=== PATIENT | male | born 1965 | race Caucasian/White ===

== ENCOUNTER 2023-01-31 08:11 | Observation (INO) | payer OTHER ==
[~2023-01-31] VITALS: Ht 172.7 cm; Wt 90.2 kg
--- OUTSIDE RECORDS SUMMARY | 2023-01-31 08:13 | XMS ---
PreManage Notification: ALEXYS FENG Security Pricing Analyst Events No recent Security Events currently on file [facility]IA MET - [facility] C[facility] PROVID[facility] There are no care providers on record at this time. Sean has no Care Guidelines for this patient. Gem VISIT COUNT (12 MO.) 1 [facility] TOTAL 1 NOTE: Visits indicate total known visits. ED/UCC VISIT TRACKING (12 MO.) 01/31/2023 08:11 [facility] [place] TYPE: Emergency COMPLAINT: - POSS STROKE INPATIENT VISIT TRACKING (12 MO.) No inpatient visits to display in this time frame [email or web address]
[2023-01-31 08:49] LABS: BASOPHILS 0.8 % (0-2); EOSINOPHILS 1.4 % (0-6); HEMATOCRIT 42.4 % (35.0-50.0); HEMOGLOBIN 13.2 g/dL (12.0-18.0); LYMPHOCYTES 9.9 % (24-44); MCH 22.4 (27-36); MCHC 31.2 g/dl (30-36); MCV 71.7 fl (81-99); MONOCYTES 7.4 % (0-12); NEUTROPHILS 80.5 % (39-80); PLATELET COUNT 250 K/uL (140-440); RBC 5.92 M/ul (4.3-5.7); RDW 18.8 (10.5-15.0)
[2023-01-31 08:58] LABS: INR 0.96 (0.80-1.30); PROTIME 12.3 Sec (11.2-14.2)
[2023-01-31 09:04] LABS: ALBUMIN 3.7 g/dL (3.4-5.0); ALBUMIN/GLOBULIN RATIO 1.19 (1.1-2.4); ANION GAP 14.4 (7-21); BILIRUBIN, TOTAL 0.3 ng/dL (0.2-1.0); BUN/CREATININE RATIO 18.46 (6.0-28.6); CALCIUM 9.3 mg/dL (8.5-10.1); CREATININE, SERUM 1.3 mg/dL (0.70-1.30); POTASSIUM 4.4 mmol/L (3.5-5.1); PROTEIN, TOTAL 6.8 g/dL (6.4-8.2)
[2023-01-31] MEDS ORDERED: LOSARTAN POTAS100 MG PO (09:06)
[2023-01-31] MEDS ORDERED: GABAPENTIN100 MG PO (09:06)
[2023-01-31] MEDS ORDERED: ROSUVASTATIN CA20 MG PO (09:06)
[2023-01-31] MEDS ORDERED: TRULICITY4.5 MG/0.5 SQ (09:06)
[2023-01-31] MEDS ORDERED: JARDIANCE25 MG PO (09:07)
[2023-01-31] MEDS ORDERED: OMEPRAZOLE20 MG PO (09:07)
[2023-01-31] MEDS ORDERED: AMLODIPINE BESY10 MG PO (09:07)
[2023-01-31] MEDS ORDERED: METFORMIN HCL1000 MG PO (09:09)
[2023-01-31] MEDS ORDERED: TOUJEO MAX300 UNIT/1 SQ (09:10)
[2023-01-31] MEDS ORDERED: LISINOPRIL10 MG PO ×2 (09:12→09:13)
[2023-01-31 11:09] LABS: AMPHETAMINES, URINE NEGATIVE (NEGATIVE); BARBITURATES, URINE NEGATIVE (NEGATIVE); BENZODIAZEPINE, URINE NEGATIVE (NEGATIVE); BUPRENORPHINE, URINE NEGATIVE (NEGATIVE); CANNABINOID, URINE NEGATIVE (NEGATIVE); COCAINE, URINE NEGATIVE (NEGATIVE); ECSTASY, URINE NEGATIVE (NEGATIVE); FENTANYL, URINE NEGATIVE (NEGATIVE); METHADONE, URINE NEGATIVE (NEGATIVE); OPIATES, URINE NEGATIVE (NEGATIVE); OXYCODONE, URINE NEGATIVE (NEGATIVE); PHENCYCLIDINE, URINE NEGATIVE (NEGATIVE)
[2023-01-31 13:20] VITALS: BP 142/69
[2023-01-31] MEDS ORDERED: ARMODAFINIL250 MG PO (14:17)
[2023-01-31 18:12] VITALS: BP 126/64
[2023-01-31 20:02] VITALS: BP 123/66
[2023-02-01 00:23] VITALS: BP 131/68
[2023-02-01 05:05] VITALS: BP 130/68
[2023-02-01 05:32] LABS: BASOPHILS 0.8 % (0-2); EOSINOPHILS 2.8 % (0-6); HEMATOCRIT 39.9 % (35.0-50.0); HEMOGLOBIN 12.7 g/dL (12.0-18.0); LYMPHOCYTES 22.8 % (24-44); MCH 22.5 (27-36); MCHC 31.9 g/dl (30-36); MCV 70.6 fl (81-99); MONOCYTES 12.2 % (0-12); NEUTROPHILS 61.4 % (39-80); PLATELET COUNT 239 K/uL (140-440); RBC 5.65 M/ul (4.3-5.7); RDW 19.1 (10.5-15.0)
[2023-02-01 05:41] LABS: ANION GAP 12.9 (7-21); BUN/CREATININE RATIO 17.46 (6.0-28.6); CREATININE, SERUM 1.26 mg/dL (0.70-1.30); POTASSIUM 3.9 mmol/L (3.5-5.1)
--- NOTE | 2023-02-01 07:13 | EKG ---
[facility] [address] [place], [place] [address] Signed Sinus bradycardia Otherwise normal ECG No previous ECGs available Confirmed by ANTHONY MONTGOMERY MD ([id number]) on 02/01/2023 7:13:04 AM Electronically Signed By: ANTHONY MONTGOMERY 02/01/23712 PATIENT NAME: ALEXYS FENG Electrocardiogram DATE OF : 63 PHYSICIAN: ANTHONY MONTGOMERY REPORT #: [id number] REPORT IS CONFIDENTIAL AND NOT TO BE RELEASED WITHOUT AUTHORIZATION
[2023-02-01 08:05] VITALS: BP 135/85
[2023-02-01 08:09] VITALS: BP 135/85
[2023-02-01] MEDS ORDERED: CLOPIDOGREL75 MG PO (08:28)
[2023-02-01] MEDS ORDERED: LO-DOSE ASPIRIN81 MG PO (08:29)
[2023-02-01] MEDS ORDERED: ASPIR-TRIN325 MG PO (09:06)
== END 2023-02-01 09:53 | disposition home or self-care (01) ==
LOC: ED 08:11 → MS 08:12 → ED 08:12 → MS 08:12
PROVIDERS: Emergency Medicine; ADMIT Internal Medicine; ATTEND Internal Medicine
DX: G45.9 Transient cerebral ischemic attack, unspecified (principal); I10 Essential (primary) hypertension; E11.9 Type 2 diabetes mellitus without complications; Z79.899 Other long term (current) drug therapy; Z79.84 Long term (current) use of oral hypoglycemic drugs; Z79.4 Long term (current) use of insulin; Z79.82 Long term (current) use of aspirin; Z88.5 Allergy status to narcotic agent
CPT/HCPCS: 36415; 70450; 70496; 70498; 70553; 71045; 80048; 80053; 80307; 84484; 85025; 85610; 85730; 93005; 93010; A9270; A9577; G0378; J1815; Q9967

== ENCOUNTER 2023-02-23 07:40 | Emergency (ER) | payer OTHER ==
[~2023-02-23] VITALS: Ht 172.7 cm; Wt 94.6 kg
[~2023-02-23 07:40] MED LIST: AMLODIPINE BESY10 MG PO; ARMODAFINIL250 MG PO; ASPIR-TRIN325 MG PO; CLOPIDOGREL75 MG PO; GABAPENTIN100 MG PO; JARDIANCE25 MG PO; LISINOPRIL10 MG PO; LO-DOSE ASPIRIN81 MG PO; LOSARTAN POTAS100 MG PO; METFORMIN HCL1000 MG PO; OMEPRAZOLE20 MG PO; ROSUVASTATIN CA20 MG PO; TOUJEO MAX300 UNIT/1 SQ; TRULICITY4.5 MG/0.5 SQ
--- OUTSIDE RECORDS SUMMARY | 2023-02-23 07:48 | XMS ---
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 Sean has no Care Guidelines for this patient. Gem VISIT COUNT (12 MO.) 2 [facility] [facility] [facility] TOTAL 2 NOTE: Visits indicate total known visits. ED/C VISIT TRACKING (12 MO.) 02/23/2023 07:40 [facility] [place] TYPE: Emergency COMPLAINT: - R KNEE/ANKLE INJURY 01/31/2023 08:11 [facility] [place] TYPE: Emergency COMPLAINT: - POSS STROKE INPATIENT VISIT TRACKING (12 MO.) 01/31/2023 08:12 [facility] [place] TYPE: Observation COMPLAINT: - TIA DIAGNOSES: - Allergy status to narcotic agent - Essential (primary) hypertension - intermediate frame tender (current) use of aspirin - intermediate frame tender (current) use of insulin - FPC (current) use of oral hypoglycemic drugs - Other prison (current) drug therapy - Transient cerebral ischemic attack, unspecified - Type 2 diabetes mellitus without complications [email or web address]
[2023-02-23 09:20] VITALS: BP 151/74
== END 2023-02-23 09:25 | disposition home or self-care (01) ==
LOC: ED 07:40
DX: S80.01XA Contusion of right knee, initial encounter (principal); S93.401A Sprain of unspecified ligament of right ankle, initial encounter; W10.9XXA Fall (on) (from) unspecified stairs and steps, initial encounter; E11.9 Type 2 diabetes mellitus without complications; Z88.5 Allergy status to narcotic agent; Z79.899 Other long term (current) drug therapy; Z79.4 Long term (current) use of insulin; Z79.82 Long term (current) use of aspirin
CPT/HCPCS: 73560; 73610; 99283-25

== ENCOUNTER 2024-03-13 08:45 | Emergency (ER) | payer OTHER ==
[~2024-03-13] VITALS: Ht 172.7 cm; Wt 84.4 kg
[2024-03-13] MEDS ORDERED: SODIUM CHLORIDE 0.9% 500 ML IV PRN (09:00)
[2024-03-13 09:08] LABS: BASOPHILS 0.8 % (0-2); EOSINOPHILS 1.1 % (0-6); HEMOGLOBIN 18.2 g/dL (12.0-18.0); LYMPHOCYTES 19.7 % (24-44); MCH 29.7 (27-36); MCHC 34.4 g/dl (30-36); MCV 86.2 fl (81-99); MONOCYTES 10.8 % (0-12); NEUTROPHILS 67.6 % (39-80); PLATELET COUNT 238 K/uL (140-440); RBC 6.14 M/ul (4.3-5.7); RDW 15.2 (10.5-15.0)
[2024-03-13 09:19] LABS: INR 0.95 (0.80-1.30); PROTIME 12.5 Sec (11.2-14.2)
[2024-03-13] MEDS ORDERED: MOUNJARO12.5 MG/0. SQ (09:25)
[2024-03-13 09:27] LABS: PARTIAL THROMBOPLASTIN TIME 28.4 Sec (22.9-41.3)
[2024-03-13 09:40] LABS: ALBUMIN 3.9 g/dL (3.4-5.0); ALBUMIN/GLOBULIN RATIO 1.22 (1.1-2.4); ALCOHOL, MEDICAL <3 ng/dL (<3); ALKALINE PHOSPHATASE 72 U/L (46-116); ALT (SGPT) 21 U/L (14-59); ANION GAP 12.8 (7-21); AST (SGOT) 15 U/L (15-37); BILIRUBIN, TOTAL 0.6 ng/dL (0.2-1.0); BUN/CREATININE RATIO 17.07 (6.0-28.6); CALCIUM 10.4 mg/dL (8.5-10.1); CARBON DIOXIDE 25 mmol/L (21-32); CHLORIDE 106 mmol/L (98-107); CREATININE, SERUM 1.23 mg/dL (0.70-1.30); GLOMERULAR FILTRATION RATE,EST 68 mL/min (>60); POTASSIUM 3.8 mmol/L (3.5-5.1); PROTEIN, TOTAL 7.1 g/dL (6.4-8.2); UREA NITROGEN 21 mg/dL (7-18)
[2024-03-13 10:24] LABS: ABO O; ANTIBODY SCREEN NEGATIVE; RH NEGATIVE
[2024-03-13 10:35] LABS: AMPHETAMINES, URINE NEGATIVE (NEGATIVE); BARBITURATES, URINE NEGATIVE (NEGATIVE); BENZODIAZEPINE, URINE NEGATIVE (NEGATIVE); BUPRENORPHINE, URINE NEGATIVE (NEGATIVE); CANNABINOID, URINE NEGATIVE (NEGATIVE); COCAINE, URINE NEGATIVE (NEGATIVE); ECSTASY, URINE NEGATIVE (NEGATIVE); FENTANYL, URINE NEGATIVE (NEGATIVE); METHADONE, URINE NEGATIVE (NEGATIVE); OPIATES, URINE NEGATIVE (NEGATIVE); OXYCODONE, URINE NEGATIVE (NEGATIVE); PHENCYCLIDINE, URINE NEGATIVE (NEGATIVE)
[2024-03-13 11:36] VITALS: BP 160/80
--- NOTE | 2024-03-14 11:51 | EKG ---
[facility] [address] [place], [place] [address] Signed Sinus rhythm with marked sinus arrhythmia Otherwise normal ECG When compared with ECG of 31-JAN-2023 09:15, No significant change was found Confirmed by Jesse Crespo DO ([id number]) on 03/14/2024 11:51:47 AM Electronically Signed By: JESSE CRESPO DO 03/14/24 1151 PATIENT NAME: CLAYRAFAELALEXYS Electrocardiogram DATE OF : 63 PHYSICIAN: JESSE CRESPO DO REPORT #: [id number] REPORT IS CONFIDENTIAL AND NOT TO BE RELEASED WITHOUT AUTHORIZATION
== END 2024-03-13 11:36 | disposition home or self-care (01) ==
LOC: ED 08:45
PROVIDERS: Emergency Medicine
DX: S09.90XA Unspecified injury of head, initial encounter (principal); W19.XXXA Unspecified fall, initial encounter; E11.9 Type 2 diabetes mellitus without complications; Z88.5 Allergy status to narcotic agent; Z79.4 Long term (current) use of insulin; Z79.84 Long term (current) use of oral hypoglycemic drugs; Z79.899 Other long term (current) drug therapy; Z79.82 Long term (current) use of aspirin
CPT/HCPCS: 36415; 70450; 70496; 70498; 71045; 72125; 80053; 80307; 83880; 84484; 85025; 85610; 85730; 86850; 86900; 86901; 93005; 93010; 99284-25; G0480; J7040

== ENCOUNTER 2024-04-21 06:34 | Emergency (ER) | payer OTHER ==
[~2024-04-21] VITALS: Ht 172.7 cm; Wt 77.8 kg
[~2024-04-21 06:34] MED LIST changes: +MOUNJARO12.5 MG/0. SQ
[2024-04-21 06:57] LABS: BASOPHILS 0.4 % (0-2); EOSINOPHILS 1.7 % (0-6); HEMATOCRIT 51.3 % (35.0-50.0); HEMOGLOBIN 17.9 g/dL (12.0-18.0); LYMPHOCYTES 18.4 % (24-44); MCH 30.3 (27-36); MCHC 34.9 g/dl (30-36); MCV 86.6 fl (81-99); NEUTROPHILS 68.5 % (39-80); PLATELET COUNT 243 K/uL (140-440); RBC 5.92 M/ul (4.3-5.7); RDW 14.7 (10.5-15.0)
[2024-04-21 07:01] LABS: INR 0.94 (0.80-1.30); PROTIME 12.5 Sec (11.2-14.2)
[2024-04-21 07:06] LABS: ALBUMIN/GLOBULIN RATIO 1.21 (1.1-2.4); ANION GAP 11.3 (7-21); BILIRUBIN, TOTAL 0.7 ng/dL (0.2-1.0); BUN/CREATININE RATIO 12.6 (6.0-28.6); CALCIUM 10.1 mg/dL (8.5-10.1); CREATININE, SERUM 1.19 mg/dL (0.70-1.30); MAGNESIUM 2.1 mg/dL (1.8-2.4); POTASSIUM 4.3 mmol/L (3.5-5.1); PROTEIN, TOTAL 7.3 g/dL (6.4-8.2)
[2024-04-21 09:21] VITALS: BP 127/75
--- NOTE | 2024-04-21 23:14 | EKG ---
[facility] [address] [place] [address] Signed Sinus rhythm with premature atrial complexes Otherwise normal ECG When compared with ECG of 13-MAR-2024 09:40, premature atrial complexes are now present Confirmed by Cherri Zelaya MD () on 04/21/2024 11:14:15 PM Electronically Signed By: CHERRI ZELAYA MD 04/21/24 2314 PATIENT NAME: ALEXYS FENG BEHZAD Electrocardiogram DATE OF : 63 PHYSICIAN: CHERRI ZELAYA MD REPORT #: [id number] REPORT IS CONFIDENTIAL AND NOT TO BE RELEASED WITHOUT AUTHORIZATION
== END 2024-04-21 09:20 | disposition home or self-care (01) ==
LOC: ED 06:34
PROVIDERS: Emergency Medicine
DX: R42 Dizziness and giddiness (principal); E11.9 Type 2 diabetes mellitus without complications; Z86.73 Personal history of transient ischemic attack (TIA), and cerebral infarction without residual deficits; Z79.02 Long term (current) use of antithrombotics/antiplatelets; Z79.84 Long term (current) use of oral hypoglycemic drugs; Z79.4 Long term (current) use of insulin; Z79.82 Long term (current) use of aspirin; Z79.899 Other long term (current) drug therapy; Z88.5 Allergy status to narcotic agent
CPT/HCPCS: 36415; 70450; 80053; 83735; 84484; 85025; 85610; 93005; 93010; 99284-25

== ENCOUNTER 2024-04-29 07:38 | Emergency (ER) | payer OTHER ==
[~2024-04-29] VITALS: Ht 172.7 cm; Wt 78.5 kg
--- OUTSIDE RECORDS SUMMARY | 2024-04-29 07:45 | XMS ---
PreManage Notification: ALEXYS FENG Security Technical System Analyst Events No recent Security Events currently on file CRITERIA MET - [facility] - 2 Visits in 30 Days CARE PROVIDERS [facility] Current PHONE: Unknown Sean has no Care Guidelines for this patient. [facility] VISIT COUNT (12 MO.) 3 [facility] TOTAL 3 NOTE: Visits indicate total known visits. ED/UCC VISIT TRACKING (12 MO.) 04/29/2024 07:39 [facility] [place] TYPE: Emergency COMPLAINT: - LT HIP INJURY 04/21/2024 06:35 [facility] [place] TYPE: Emergency COMPLAINT: - HEAD INJURY DIAGNOSES: - Allergy status to narcotic agent - Dizziness and giddiness - extermination inspector (current) use of antithrombotics/antiplatelets - extermination inspector (current) use of aspirin - longterm (current) use of insulin - extermination inspector (current) use of oral hypoglycemic drugs - Other long lines operator (current) drug therapy - Personal history of transient ischemic attack (TIA), and cerebral infarction without residual deficits - Type 2 diabetes mellitus without complications 03/13/2024 08:46 [facility] [place] TYPE: Emergency COMPLAINT: - FALL DIAGNOSES: - Allergy status to narcotic agent - Dizziness and giddiness - extermination inspector (current) use of aspirin - longterm (current) use of insulin - longterm (current) use of oral hypoglycemic drugs - Other usp (current) drug therapy - Type 2 diabetes mellitus without complications - Unspecified fall, initial encounter - Unspecified injury of head, initial encounter INPATIENT VISIT TRACKING (12 MO.) No inpatient visits to display in this time frame [email or web address]
[2024-04-29 08:12] LABS: BILIRUBIN, URINE POSITIVE (negative); BLOOD/HGB, URINE NEGATIVE (Negative); KETONE, URINE SMALL (Negative); LEUK ESTERASE, URINE NEGATIVE (negative); NITRITE, URINE NEGATIVE (negative); PH, URINE 5.5 (5-7)
[2024-04-29] MEDS ORDERED: ACETAMINOPHEN 500 MG TAB PO ONE (08:15)
[2024-04-29 08:23] LABS: BASOPHILS 0.6 % (0-2); EOSINOPHILS 0.9 % (0-6); HEMATOCRIT 43.9 % (35.0-50.0); HEMOGLOBIN 15.1 g/dL (12.0-18.0); LYMPHOCYTES 11.9 % (24-44); MCH 30.3 (27-36); MCHC 34.3 g/dl (30-36); MCV 88.3 fl (81-99); MONOCYTES 12.3 % (0-12); NEUTROPHILS 74.3 % (39-80); PLATELET COUNT 231 K/uL (140-440); RBC 4.98 M/ul (4.3-5.7); RDW 14.9 (10.5-15.0)
[2024-04-29 08:31] LABS: ANION GAP 15.8 (7-21); BUN/CREATININE RATIO 17.47 (6.0-28.6); CREATININE, SERUM 1.03 mg/dL (0.70-1.30); POTASSIUM 3.8 mmol/L (3.5-5.1)
[2024-04-29 09:48] VITALS: BP 135/71
== END 2024-04-29 09:48 | disposition home or self-care (01) ==
LOC: ED 07:38
PROVIDERS: Emergency Medicine
DX: S37.022A Major contusion of left kidney, initial encounter (principal); W19.XXXA Unspecified fall, initial encounter; I10 Essential (primary) hypertension; E11.9 Type 2 diabetes mellitus without complications; Z88.5 Allergy status to narcotic agent; Z79.899 Other long term (current) drug therapy; Z79.84 Long term (current) use of oral hypoglycemic drugs
CPT/HCPCS: 36415; 74176; 80048; 81003; 85025; 99284-25; A9270